=== PATIENT | female | born 1945 | race Caucasian/White ===

== ENCOUNTER 2020-06-14 11:27 | Outpatient (REF) | payer MEDICARE, SELFPAY | END 2020-06-14 11:28 | disposition home or self-care (01) | LOC: HO.HAP 11:27 | PROVIDERS: Visit Provider Internal Medicine | DX: Z46.1 Encounter for fitting and adjustment of hearing aid (principal) | CPT/HCPCS: V5266; V5267 ==

== ENCOUNTER 2020-10-15 13:33 | Outpatient (REF) | payer MEDICARE, SELFPAY | END 2020-10-15 13:34 | disposition home or self-care (01) | LOC: HO.HAP 13:33 | PROVIDERS: Visit Provider Internal Medicine | DX: Z46.1 Encounter for fitting and adjustment of hearing aid (principal) | CPT/HCPCS: V5266 ==

== ENCOUNTER 2020-10-24 10:19 | Outpatient (REF) | payer SELFPAY | END 2020-10-24 10:20 | disposition home or self-care (01) | LOC: HO.HAP 10:19 | PROVIDERS: Visit Provider Internal Medicine | DX: Z13.89 Encounter for screening for other disorder (principal) ==

== ENCOUNTER 2020-10-31 14:32 | Outpatient (REF) | payer SELFPAY | END 2020-10-31 14:33 | disposition home or self-care (01) | LOC: HO.HAP 14:32 | PROVIDERS: Visit Provider Internal Medicine | DX: Z13.89 Encounter for screening for other disorder (principal) ==

== ENCOUNTER 2020-11-15 09:03 | Outpatient (REF) | payer MEDICARE, SELFPAY ==
--- NOTE | ~2020-11-15 | MM_ITS ---
EXAMINATION: MM SCREENING DIGITAL BREAST TOMOSYNTHESIS, BILATERAL CLINICAL INFORMATION: Screening. Asymptomatic. The lifetime risk of breast cancer based on the Tyrer-Cuzick Model is 4%. COMPARISON: Mammography: 05/03/2019, 03/03/2018, 01/20/2017 TECHNIQUE: Digital breast tomosynthesis is performed in both the craniocaudal and mediolateral oblique views along with computer-aided detection (CAD). Synthesized 2D images are generated from the tomosynthesis. Additional left MLO view is provided. FINDINGS: There are scattered areas of fibroglandular density (ACR BI-RADS breast composition Category b). There are no significant masses, abnormal calcifications, or other abnormalities. Parenchymal pattern is similar to prior studies. There is a small oval circumscribed nodule anterior upper outer right breast and scattered vascular calcifications. The axilla and skin contours are unremarkable. MM/MM tomosynthesis screening BI IMPRESSION: No mammographic evidence of malignancy. ASSESSMENT: BI-RADS 2: Benign RECOMMENDATION: Routine annual mammography screening. This patient's information was entered into a reminder system with a target due date for their next mammogram.
== END 2020-11-15 09:04 | disposition home or self-care (01) ==
LOC: HO.MAMMO 09:03
PROVIDERS: PCP Internal Medicine; Visit Provider Internal Medicine
DX: Z12.31 Encounter for screening mammogram for malignant neoplasm of breast (principal)
CPT/HCPCS: 77063; 77067

== ENCOUNTER 2020-11-25 13:49 | Outpatient (REF) | payer SELFPAY | END 2020-11-25 13:50 | disposition home or self-care (01) | LOC: HO.HAP 13:49 | PROVIDERS: Visit Provider Internal Medicine | DX: Z13.89 Encounter for screening for other disorder (principal) ==

== ENCOUNTER 2020-12-03 13:42 | Outpatient (REF) | payer SELFPAY ==
--- NOTE | 2020-12-10 13:29 | MHC.AU.FUL ---
Hearing Instrument Follow-Up Date of Visit: 12/03/20 Netsuite Consultant Used: Left Ear: Oil Separator: Phonak Model: Virto B90-10 Serial Number: [id number] Repair Warranty: 05/28/2022 Loss and Damage Warranty: 05/28/2022 Battery Size: 10 Type of Wax Guard: Cerustop Dispensed By: [facility] Date of Fittin05/11/2019 Follow-Up Summary: Patient's picked up hearing aid that was repaired at [facility]. Also purchased wax guards. Recommendations: Patient will call if problems persist. Diagnosis Code(s): Primary Diagnosis: H90.3 Bilateral Sensorineural Hearing Loss Signature: Provider: Phan Ramirez, FAAA
== END 2020-12-03 13:43 | disposition home or self-care (01) ==
LOC: HO.HAP 13:42
PROVIDERS: Visit Provider Internal Medicine
DX: Z46.1 Encounter for fitting and adjustment of hearing aid (principal); H90.3 Sensorineural hearing loss, bilateral
CPT/HCPCS: V5267

== ENCOUNTER 2021-02-06 13:23 | Outpatient (REF) | payer SELFPAY | END 2021-02-06 13:24 | disposition home or self-care (01) | LOC: HO.HAP 13:23 | PROVIDERS: Visit Provider Internal Medicine | DX: Z13.89 Encounter for screening for other disorder (principal) ==

== ENCOUNTER 2021-02-07 09:04 | Outpatient (REF) | payer SELFPAY | END 2021-02-07 09:05 | disposition home or self-care (01) | LOC: HO.HAP 09:04 | PROVIDERS: Visit Provider Internal Medicine | DX: Z13.89 Encounter for screening for other disorder (principal) ==

== ENCOUNTER 2021-03-24 12:10 | Outpatient (REF) | payer SELFPAY | END 2021-03-24 12:11 | disposition home or self-care (01) | LOC: HO.HAP 12:10 | PROVIDERS: Visit Provider Internal Medicine | DX: Z46.1 Encounter for fitting and adjustment of hearing aid (principal); H90.3 Sensorineural hearing loss, bilateral | CPT/HCPCS: V5266 ==

== ENCOUNTER 2021-05-09 11:25 | Outpatient (REF) | payer SELFPAY | END 2021-05-09 11:26 | disposition home or self-care (01) | LOC: HO.HAP 11:25 | PROVIDERS: Visit Provider Internal Medicine | DX: Z13.89 Encounter for screening for other disorder (principal) ==

== ENCOUNTER 2021-05-23 08:28 | Outpatient (REF) | payer SELFPAY | END 2021-05-23 08:29 | disposition home or self-care (01) | LOC: HO.HAP 08:28 | PROVIDERS: Visit Provider Internal Medicine | DX: Z13.89 Encounter for screening for other disorder (principal) ==

== ENCOUNTER 2021-06-02 09:50 | Outpatient (REF) | payer SELFPAY ==
--- NOTE | 2021-06-02 10:06 | MHC.AU.FUL ---
Hearing Instrument Follow-Up Date of Visit: 06/02/21 Left Ear: Oem Sales Manager: Phonak Model: Virto B90-10 Serial Number: [id number] Repair Warranty: 05/28/2022 Loss and Damage Warranty: 05/28/2022 Battery Size: 10 Type of Wax Guard: Cerustop Dispensed By: [facility] Date of Fittin05/11/2019 Follow-Up Summary: Left aid dropped off with patient reporting the battery door fell off. Visual inspection of the aid shows the battery is stuck in the hearing aid and turned on its side causing internal components to be displaced. Called patient and sending aid for repair under warranty. Recommendations (Other): When repair received schedule appointment as aids will need to be paired together. PATIENT'S CASE IS IN THE REPAIR DRAWER Diagnosis Code(s): Primary Diagnosis: H90.3 Bilateral Sensorineural Hearing Loss Services Performed: COOLEY Non-Quantity Charges: HANC: NonBillable Event Signature: Provider: Phan Alvarado, CCC-A
== END 2021-06-02 09:51 | disposition home or self-care (01) ==
LOC: HO.HAP 09:50
PROVIDERS: Visit Provider Internal Medicine
DX: Z13.89 Encounter for screening for other disorder (principal)

== ENCOUNTER 2021-06-16 13:21 | Outpatient (REF) | payer SELFPAY | END 2021-06-16 13:22 | disposition home or self-care (01) | LOC: HO.HAP 13:21 | PROVIDERS: Visit Provider Internal Medicine | DX: Z13.89 Encounter for screening for other disorder (principal) ==

== ENCOUNTER 2021-08-06 08:56 | Outpatient (REF) | payer SELFPAY | END 2021-08-06 08:57 | disposition home or self-care (01) | LOC: HO.HAP 08:56 | PROVIDERS: Visit Provider Internal Medicine | DX: Z46.1 Encounter for fitting and adjustment of hearing aid (principal); H90.3 Sensorineural hearing loss, bilateral | CPT/HCPCS: V5266 ==

== ENCOUNTER 2021-08-20 08:16 | Outpatient (REF) | payer SELFPAY | END 2021-08-20 08:17 | disposition home or self-care (01) | LOC: HO.HAP 08:16 | PROVIDERS: Visit Provider Internal Medicine | DX: Z13.89 Encounter for screening for other disorder (principal) ==

== ENCOUNTER 2021-08-21 15:51 | Outpatient (REF) | payer SELFPAY | END 2021-08-21 15:52 | disposition home or self-care (01) | LOC: HO.HAP 15:51 | PROVIDERS: Visit Provider Internal Medicine | DX: Z13.89 Encounter for screening for other disorder (principal) ==

== ENCOUNTER 2021-12-23 08:39 | Outpatient (REF) | payer SELFPAY | END 2021-12-23 08:40 | disposition home or self-care (01) | LOC: HO.HAP 08:39 | PROVIDERS: PCP Internal Medicine; Visit Provider Internal Medicine | DX: Z46.1 Encounter for fitting and adjustment of hearing aid (principal); H90.3 Sensorineural hearing loss, bilateral | CPT/HCPCS: V5266 ==

== ENCOUNTER 2022-02-11 10:31 | Outpatient (REF) | payer SELFPAY | END 2022-02-11 10:32 | disposition home or self-care (01) | LOC: HO.HAP 10:31 | PROVIDERS: Visit Provider Internal Medicine | DX: Z46.1 Encounter for fitting and adjustment of hearing aid (principal); H90.3 Sensorineural hearing loss, bilateral | CPT/HCPCS: V5299 ==

== ENCOUNTER 2022-05-11 08:06 | Outpatient (REF) | payer SELFPAY | END 2022-05-11 08:07 | disposition home or self-care (01) | LOC: HO.HAP 08:06 | PROVIDERS: Visit Provider Internal Medicine | DX: Z13.89 Encounter for screening for other disorder (principal) ==

== ENCOUNTER 2022-05-11 09:24 | Outpatient (REF) | payer SELFPAY | END 2022-05-11 09:25 | disposition home or self-care (01) | LOC: HO.HAP 09:24 | PROVIDERS: Visit Provider Internal Medicine | DX: Z46.1 Encounter for fitting and adjustment of hearing aid (principal); H90.3 Sensorineural hearing loss, bilateral | CPT/HCPCS: V5266 ==

== ENCOUNTER 2022-08-24 08:22 | Outpatient (REF) | payer MEDICARE, SELFPAY | END 2022-08-24 08:23 | disposition home or self-care (01) | LOC: HO.SH 08:22 | PROVIDERS: Visit Provider Internal Medicine | DX: Z46.1 Encounter for fitting and adjustment of hearing aid (principal); H90.3 Sensorineural hearing loss, bilateral | CPT/HCPCS: 92552; 92556; 92567 ==

== ENCOUNTER 2022-08-24 09:34 | Outpatient (REF) | payer SELFPAY ==
--- NOTE | 2022-08-24 15:14 | MHC.AU.MED ---
Medical Clearance for Hearing Instrumentation Date: 08/24/22 Patient Name: Maria Del Rosario Narvaez Date of : 1945 Primary Care Provider: Referring Provider: Talha Fuentes MD We have seen your patient on 08/24/22 and have determined that they are a candidate for amplification (See accompanying report). Specifically, they would benefit from: Hearing aid use in both ears There is a statute that addresses Medical Evaluation Requirements prior to fitting a patient with a hearing aid. According to [place] statute 265 CMR:6.03(1), (a) General. Except as provided in 265 CMR 6.03(1)(b), a hearing screen coordinator shall not sell a hearing aid unless the prospective user has presented to the hearing screen coordinator a written statement signed by a licensed physician that states that the patient's hearing loss has been medically evaluated and the patient may be considered a candidate for a hearing aid. The medical evaluation must have taken place within the preceding six months. Please note: Due to the [place] Statute referenced above, we cannot accept a signature other than that of a licensed physician. LEGAL WRITING PROFESSOR and PA signatures cannot be accepted. I am in agreement with the above recommendation. There is no medical contraindication for hearing instrumentation. Physician Signature Date Physician Name (Printed)
--- NOTE | 2022-08-25 07:55 | MHC.AU.HA1 ---
Hearing Aid Evaluation Date of Visit: 08/24/22 Seasonal Driver Used: Not Applicable Historical Information: Description of Hearing: Moderate to severe bilateral sensorineural hearing loss with 92% speech understanding, both ears. Summary: Patient lost both hearing aids obtained in 2019. Patient liked these hearing aids with the exception of feedback when using the phone. Will order the same model hearing aids and make sure no feedback with phone during the trial period. Hearing Aid Prescription: Based on the individual?s shared listening needs, communication environments, dexterity, desire for connectivity, and personal preferences, the following prescription for amplification has been made: Right ear: Make, Model, Color: Phonak Virto P 90-10-NO Battery Size: 10 Left ear:Left ear prescription to be same as Right Hearing Aid above: Make, Model, Color: Phonak Virto P 90-10-NO Battery Size: 10 Accessories/Assistive Technology Recommended: None Plan of Care: Patient wishes to purchase hearing aids as prescribed Action Taken/Action Needed: Earmold Impressions Taken Medical Clearance to be requested from PCP/ENT Primary Diagnosis: H90.3 Bilateral Sensorineural Hearing Loss Signature: Provider: Venkatesh Alvarado, [facility]
== END 2022-08-24 09:35 | disposition home or self-care (01) ==
LOC: HO.HAP 09:34
PROVIDERS: Visit Provider Internal Medicine
DX: Z46.1 Encounter for fitting and adjustment of hearing aid (principal); H90.3 Sensorineural hearing loss, bilateral
CPT/HCPCS: 92590

== ENCOUNTER 2022-09-18 15:11 | Outpatient (REF) | payer SELFPAY ==
--- NOTE | 2022-09-18 15:32 | MHC.AU.NPS ---
PURCHASE AND SALE AGREEMENT Date of Fitting: End of Adjustment Period:30 days from fitting date Admissions Counselor: [facility] 3 YR Service Agreement? Opt In: expires? Following the expiration of [facility]?s service agreement, charges for items and services are billed at the usual and customary rate. Payment is due at the time of service. ? (Initialed) Opt out: I understand by opting out of the service agreement I will be charged for any and all hearing aid related services obtained after the adjustment period.? (Initialed) Total Due at Fitting $? Includes any opted in hearing aid service agreement, earmolds and accessories Right Ear: Left Ear: Make, Model, Serial Number and Color: Phonak Virto P 90-10-NW O Sloan S#[id number] Make, Model, Serial Number and Color: Phonak Virto P 90-10-NW O [employer]loan S#[id number] Bench Patternmaker Metal/Slim Tube: Bench Patternmaker Metal/Slim Tube: Earmold/Dome/CShell/SlimTip: Earmold/Dome/CShell/SlimTip: Type of Wax Guard: Cerustop Type of Wax Guard: Cerustop Battery Size: 10 Battery Size: 10 Therapist Physical Repair Warranty: 11/29/2025 Therapist Physical Repair Warranty: 11/29/2025 Therapist Physical Loss and Damage Warranty: 11/29/2025 Therapist Physical Loss and Damage Warranty: 11/29/2025 [facility] Service Plan: [facility] Service Plan: Accessories/Assistive Technology: The following items that may be supplied at initial fitting are not included in any warranty or service package: ? Hearing aid batteries ($5), Wax Guard packages ($10) Per [place] regulations, during the 30-day adjustment period, the mold cooler shall be able to cancel the purchase with a limited money back guarantee.? When a mold cooler returns the hearing aid within the adjustment period, the seller shall be entitled to retain the charges for earmolds, services provided to fit the hearing aid; and any repair, remake or adjustment performed that is not contained within any other warranty of sale or service, not to exceed 20% of the purchase acevedo. ? [facility]?s non-refundable portion of the process, not including earmolds, is the previously paid hearing aid evaluation and selection fee of $350. ? Hearing aids that are lost or damaged beyond repair cannot be returned for credit, and the mold cooler is liable for the full purchase acevedo. My signature below acknowledges that I have read and understand this hearing aid contract and have received the goods and services out lined above. ?Date? Home Address: ? This hearing aid will not restore normal hearing nor will it prevent further hearing loss. The sale of a hearing aid is restricted to those individuals who have obtained a medical evaluation from a licensed physician or practice advisor. A fully informed adult whose quaker or personal beliefs preclude consultation with a physician may waive the requirement of a medical evaluation. The exercise of such a waiver is not in your best health interest and its use is strongly discouraged. It is also required that a person under the age of eighteen years obtain an evaluation by an railway track worker in addition to the medical evaluation before a hearing aid can be sold to such person. Julio Stewart,Title XV,Chapter 93:74 ?Base cost of hearing aid(s) includes the following one-time services during adjustment period: ? Pre-fitting programming ? Electroacoustic check ? Conformity Evaluation ? Hearing aid dispensing ? One adjustment period visit after fitting ? Instruction on use of devices ? Custom modifications to settings, fit ? As needed: Starter battery packs, wax guards, cleaning tools, case ? Pairing devices as needed
== END 2022-09-18 15:12 | disposition home or self-care (01) ==
LOC: HO.HAP 15:11
PROVIDERS: Visit Provider Internal Medicine
DX: H90.3 Sensorineural hearing loss, bilateral (principal); Z46.1 Encounter for fitting and adjustment of hearing aid
CPT/HCPCS: V5260; V5299

== ENCOUNTER 2022-09-22 12:22 | Outpatient (REF) | payer SELFPAY | END 2022-09-22 12:23 | disposition home or self-care (01) | LOC: HO.HAP 12:22 | PROVIDERS: Visit Provider Internal Medicine | DX: Z13.89 Encounter for screening for other disorder (principal) ==

== ENCOUNTER 2022-10-19 10:26 | Outpatient (REF) | payer SELFPAY | END 2022-10-19 10:27 | disposition home or self-care (01) | LOC: HO.HAP 10:26 | PROVIDERS: Visit Provider Internal Medicine | DX: Z46.1 Encounter for fitting and adjustment of hearing aid (principal); H90.3 Sensorineural hearing loss, bilateral | CPT/HCPCS: V5266 ==

== ENCOUNTER 2022-10-23 10:33 | Outpatient (REF) | payer SELFPAY | END 2022-10-23 10:34 | disposition home or self-care (01) | LOC: HO.HAP 10:33 | PROVIDERS: Visit Provider Internal Medicine | DX: Z13.89 Encounter for screening for other disorder (principal) ==

== ENCOUNTER 2022-11-16 09:09 | Outpatient (REF) | payer SELFPAY | END 2022-11-16 09:10 | disposition home or self-care (01) | LOC: HO.HAP 09:09 | PROVIDERS: Visit Provider Internal Medicine | DX: Z13.89 Encounter for screening for other disorder (principal) ==

== ENCOUNTER 2022-12-03 14:48 | Outpatient (REF) | payer SELFPAY | END 2022-12-03 14:49 | disposition home or self-care (01) | LOC: HO.HAP 14:48 | PROVIDERS: Visit Provider Internal Medicine | DX: Z13.89 Encounter for screening for other disorder (principal) ==

== ENCOUNTER 2022-12-11 08:13 | Outpatient (REF) | payer SELFPAY | END 2022-12-11 08:14 | disposition home or self-care (01) | LOC: HO.HAP 08:13 | PROVIDERS: Visit Provider Internal Medicine | DX: Z13.89 Encounter for screening for other disorder (principal) ==

== ENCOUNTER 2022-12-23 16:24 | Outpatient (REF) | payer SELFPAY | END 2022-12-23 16:25 | disposition home or self-care (01) | LOC: HO.HAP 16:24 | PROVIDERS: Visit Provider Internal Medicine | DX: Z13.89 Encounter for screening for other disorder (principal) ==

== ENCOUNTER 2023-03-18 11:20 | Outpatient (REF) | payer SELFPAY | END 2023-03-18 11:21 | disposition home or self-care (01) | LOC: HO.HAP 11:20 | PROVIDERS: Visit Provider Internal Medicine | DX: Z46.1 Encounter for fitting and adjustment of hearing aid (principal); H90.3 Sensorineural hearing loss, bilateral | CPT/HCPCS: V5266 ==

== ENCOUNTER 2023-03-22 08:47 | Outpatient (REF) | payer SELFPAY | END 2023-03-22 08:48 | disposition home or self-care (01) | LOC: HO.HAP 08:47 | PROVIDERS: Visit Provider Internal Medicine | DX: Z13.89 Encounter for screening for other disorder (principal) ==

== ENCOUNTER 2023-06-21 09:15 | Outpatient (REF) | payer SELFPAY | END 2023-06-21 09:16 | disposition home or self-care (01) | LOC: HO.HAP 09:15 | PROVIDERS: Visit Provider Internal Medicine | DX: Z46.1 Encounter for fitting and adjustment of hearing aid (principal); H90.3 Sensorineural hearing loss, bilateral | CPT/HCPCS: V5266 ==

== ENCOUNTER 2023-09-17 09:57 | Outpatient (REF) | payer SELFPAY | END 2023-09-17 09:58 | disposition home or self-care (01) | LOC: HO.HAP 09:57 | PROVIDERS: Visit Provider Internal Medicine | DX: Z46.1 Encounter for fitting and adjustment of hearing aid (principal); H90.3 Sensorineural hearing loss, bilateral | CPT/HCPCS: V5266 ==

== ENCOUNTER 2023-12-23 11:46 | Outpatient (REF) | payer SELFPAY | END 2023-12-23 11:47 | disposition home or self-care (01) | LOC: HO.HAP 11:46 | PROVIDERS: Visit Provider Internal Medicine | DX: Z46.1 Encounter for fitting and adjustment of hearing aid (principal); H90.3 Sensorineural hearing loss, bilateral | CPT/HCPCS: V5266; V5267 ==

== ENCOUNTER 2024-02-08 10:33 | Outpatient (REF) | payer SELFPAY | END 2024-02-08 10:34 | disposition home or self-care (01) | LOC: HO.HAP 10:33 | PROVIDERS: Visit Provider Internal Medicine | DX: Z13.89 Encounter for screening for other disorder (principal) ==

== ENCOUNTER 2024-02-10 13:31 | Outpatient (REF) | payer SELFPAY | END 2024-02-10 13:32 | disposition home or self-care (01) | LOC: HO.HAP 13:31 | PROVIDERS: Visit Provider Internal Medicine | DX: Z13.89 Encounter for screening for other disorder (principal) ==

== ENCOUNTER 2024-04-03 08:46 | Outpatient (REF) | payer SELFPAY | END 2024-04-03 08:47 | disposition home or self-care (01) | LOC: HO.HAP 08:46 | PROVIDERS: Visit Provider Internal Medicine | DX: Z13.89 Encounter for screening for other disorder (principal) ==

== ENCOUNTER 2024-08-31 09:16 | Outpatient (REF) | payer SELFPAY | END 2024-08-31 09:17 | disposition home or self-care (01) | LOC: HO.SH 09:16 | PROVIDERS: Visit Provider Internal Medicine | DX: Z01.118 Encounter for examination of ears and hearing with other abnormal findings (principal); H90.3 Sensorineural hearing loss, bilateral | CPT/HCPCS: V5266 ==